=== PATIENT | male | born 1960 | race Caucasian/White ===

== ENCOUNTER → 2021-08-26 | Outpatient (CLI) | payer OTHER ==
[2021-08-26 12:55] LABS: HEMOGLOBIN A1C 6.1 % (3.8-5.6)
[2021-08-26 13:12] LABS: PROSTATE SPECIFIC ANTIGEN 1.62 ng/mL (0.00-4.00)
[2021-08-26 13:13] LABS: EOSINOPHILS % (AUTO) 6.9 % (1.0-6.0); HEMATOCRIT 44.3 % (41-53); HEMOGLOBIN 14.9 g/dL (13.5-17.5); LYMPHOCYTES # (AUTO) 1.7 K/uL (1.0-4.8); LYMPHOCYTES % (AUTO) 25.1 % (22.0-44.0); MEAN CORPUSCULAR HEMOGLOBIN 31.2 pg (26.0-34.0); MEAN CORPUSCULAR HGB CONC 33.5 G/dL (31.0-37.0); MEAN CORPUSCULAR VOLUME 93 fL (80-100); MONOCYTES # (AUTO) 0.6 K/uL (0.1-1.0); MONOCYTES % (AUTO) 8.9 % (2.0-9.0); NEUTROPHILS # (AUTO) 3.8 K/uL (1.8-7.7); NEUTROPHILS % (AUTO) 58.1 % (40.0-70.0); PLATELET COUNT (AUTO) 195 K/uL (150-450); RED BLOOD CELL COUNT(AUTO) 4.77 MIL/uL (4.50-5.90); RED CELL DISTRIBUTION WIDTH 13.2 % (11.5-14.5)
[2021-08-26 13:31] LABS: ALANINE AMINOTRANSFERASE 53 U/L (12-78); ALBUMIN 4.3 g/dL (3.4-5.0); ALKALINE PHOSPHATASE 64 U/L (46-116); ANION GAP 5 mmol/L (8-16); ASPARTATE AMINOTRANSFERASE 32 U/L (15-37); BILIRUBIN,TOTAL 0.9 mg/dL (0.1-1.0); CALCIUM, TOTAL 9.5 mg/dL (8.8-10.5); CARBON DIOXIDE 31 mmol/L (22-29); CHLORIDE 101 mmol/L (98-107); CHOL/HDL RATIO 4.5 (4.2-7.3); CHOLESTEROL 239 mg/dL (131-200); GLOMERULAR FILTR. RATE CALC > 60 mL/min (>60); GLUCOSE,RANDOM 116 mg/dL (70-110); HDL CHOLESTEROL 53 mg/dL (40-60); LDL CHOL (CALC.) 162 mg/dL (0-130); POTASSIUM 4.4 mmol/L (3.5-5.1); SODIUM SERUM 137 mmol/L (136-145); THYROID STIMULATING HORMONE 3.69 uIU/mL (0.36-3.74); TOTAL PROTEIN, SERUM 7.9 g/dL (6.4-8.2); TRIGLYCERIDES 122 mg/dL (15-150); UREA NITROGEN, BLOOD 12 mg/dL (7-18)
== END | disposition home or self-care (01) ==
LOC: MSR 11:39
PROVIDERS: ATTEND Internal Medicine
DX: Z13.228 Encounter for screening for other metabolic disorders (principal); I10 Essential (primary) hypertension; E78.5 Hyperlipidemia, unspecified; R79.9 Abnormal finding of blood chemistry, unspecified; R94.6 Abnormal results of thyroid function studies; R97.1 Elevated cancer antigen 125 [CA 125]; R97.20 Elevated prostate specific antigen [PSA]; I51.7 Cardiomegaly
CPT/HCPCS: 71046; 80053; 80061; 83036; 84153; 84443; 85025; 36415-L1; 36415-TC

== ENCOUNTER → 2021-08-26 | Outpatient (CLI) | payer BC, OTHER ==
[~2021-08-26] VITALS: Ht 175.3 cm; Wt 111.0 kg
[2021-08-26 10:23] VITALS: BP 137/73
== END | disposition home or self-care (01) ==
LOC: SRCNTR 09:35
PROVIDERS: ATTEND Internal Medicine
DX: I10 Essential (primary) hypertension (principal); J45.909 Unspecified asthma, uncomplicated; E78.5 Hyperlipidemia, unspecified; I35.0 Nonrheumatic aortic (valve) stenosis; M16.9 Osteoarthritis of hip, unspecified; Z95.2 Presence of prosthetic heart valve; Z96.649 Presence of unspecified artificial hip joint
CPT/HCPCS: G0463; Z7500

== ENCOUNTER 2022-01-04 08:15 | Emergency (ER) | payer OTHER ==
[~2022-01-04] VITALS: Ht 180.3 cm; Wt 106.8 kg
[2022-01-04] MEDS ORDERED: METOPROLOL SUCCINATE 50 MG ER TABLET PO ONE (08:45)
[2022-01-04 09:12] LABS: BASOPHILS % (AUTO) 0.6 % (0.0-2.0); HEMATOCRIT 41.8 % (41-53); LYMPHOCYTES # (AUTO) 1.6 K/uL (1.0-4.8); LYMPHOCYTES % (AUTO) 28.6 % (22.0-44.0); MEAN CORPUSCULAR HEMOGLOBIN 30.3 pg (26.0-34.0); MEAN CORPUSCULAR HGB CONC 33.5 G/dL (31.0-37.0); MEAN CORPUSCULAR VOLUME 90 fL (80-100); MONOCYTES # (AUTO) 0.5 K/uL (0.1-1.0); MONOCYTES % (AUTO) 9.2 % (2.0-9.0); NEUTROPHILS # (AUTO) 3.3 K/uL (1.8-7.7); NEUTROPHILS % (AUTO) 57.6 % (40.0-70.0); PLATELET COUNT (AUTO) 199 K/uL (150-450); RED BLOOD CELL COUNT(AUTO) 4.63 MIL/uL (4.50-5.90); RED CELL DISTRIBUTION WIDTH 13.7 % (11.5-14.5)
[2022-01-04 09:22] LABS: ANION GAP 7 mmol/L (8-16); CALCIUM, TOTAL 8.8 mg/dL (8.8-10.5); CARBON DIOXIDE 29 mmol/L (22-29); CHLORIDE 104 mmol/L (98-107); CREATININE 0.93 mg/dL (0.60-1.30); GLOMERULAR FILTR. RATE CALC > 60 mL/min (>60); GLUCOSE,RANDOM 120 mg/dL (70-110); SODIUM SERUM 140 mmol/L (136-145); UREA NITROGEN, BLOOD 17 mg/dL (7-18)
[2022-01-04 09:26] LABS: PROTHROMBIN TIME 10.9 SEC (9.4-11.6)
[2022-01-04 09:27] LABS: ALANINE AMINOTRANSFERASE 46 U/L (12-78); ALBUMIN 3.9 g/dL (3.4-5.0); ALKALINE PHOSPHATASE 57 U/L (46-116); ASPARTATE AMINOTRANSFERASE 25 U/L (15-37); BILIRUBIN,TOTAL 0.8 mg/dL (0.1-1.0); TOTAL PROTEIN, SERUM 7.2 g/dL (6.4-8.2)
[2022-01-04 09:29] LABS: B-TYPE NATRIURETIC PEPTIDE 20 pg/mL (0-100)
[2022-01-04 12:25] VITALS: BP 120/67
[2022-01-04] MEDS ORDERED: METO-558 PO (13:02)
== END 2022-01-04 13:16 | disposition home or self-care (01) ==
LOC: EMS 08:15
DX: I48.92 Unspecified atrial flutter (principal); I10 Essential (primary) hypertension; I25.10 Atherosclerotic heart disease of native coronary artery without angina pectoris; Z95.2 Presence of prosthetic heart valve; Z98.890 Other specified postprocedural states; Z88.0 Allergy status to penicillin
CPT/HCPCS: 71045; 80053; 83880; 84484; 85025; 85610; 85730; 93005; 93306; 99285; 36415-L1; 36415-TC

== ENCOUNTER → 2022-02-04 | Outpatient (CLI) | payer OTHER ==
[~2022-02-04] MED LIST: METO-558 PO
[2022-02-04 10:44] VITALS: BP 12/90
[2022-02-04 10:55] VITALS: BP 123/90
== END | disposition home or self-care (01) ==
LOC: SRCNTR 10:19
PROVIDERS: ATTEND Internal Medicine
DX: I48.92 Unspecified atrial flutter (principal); I10 Essential (primary) hypertension; Z95.3 Presence of xenogenic heart valve
CPT/HCPCS: 93005; G0463

== ENCOUNTER 2022-03-30 12:40 | Emergency (ER) | payer OTHER ==
[~2022-03-30] VITALS: Ht 185.4 cm; Wt 106.8 kg
[2022-03-30 13:50] LABS: COVID AG,FIA SOURCE NASOPHARYNGEAL
[2022-03-30 14:11] LABS: INFLUENZA TYPE A NEGATIVE FOR TYPE A (NEGATIVE); INFLUENZA TYPE B NEGATIVE FOR TYPE B (NEGATIVE)
[2022-03-30] MEDS ORDERED: BEBTELOVIMAB (EUA) 175 MG/2 ML VIAL IVP ONE (15:45)
[2022-03-30] MEDS ORDERED: SODIUM CHLORIDE 0.9% 1,000 ML IV ONE (15:45)
[2022-03-30 17:10] VITALS: BP 110/67
== END 2022-03-30 17:22 | disposition home or self-care (01) ==
LOC: EMS 12:40
DX: U07.1 COVID-19 (principal); I10 Essential (primary) hypertension; J45.909 Unspecified asthma, uncomplicated; Z88.0 Allergy status to penicillin; Z79.899 Other long term (current) drug therapy
CPT/HCPCS: 99283; 96360; 87426; 87804; M0222; Q0222

== ENCOUNTER → 2022-06-21 | Outpatient (CLI) | payer OTHER ==
[~2022-06-21] MED LIST changes: +APIX5TAB PO; +ASPI81 PO; +FLUT1BLS9 IH; +MONT-35 PO
[2022-06-21 10:50] VITALS: BP 132/92
== END | disposition home or self-care (01) ==
LOC: SRCNTR 10:25
PROVIDERS: ATTEND Internal Medicine
DX: Z09 Encounter for follow-up examination after completed treatment for conditions other than malignant neoplasm (principal); I48.92 Unspecified atrial flutter; J45.909 Unspecified asthma, uncomplicated; I10 Essential (primary) hypertension; E78.5 Hyperlipidemia, unspecified; I35.0 Nonrheumatic aortic (valve) stenosis; M16.10 Unilateral primary osteoarthritis, unspecified hip; Z95.4 Presence of other heart-valve replacement
CPT/HCPCS: G0463; Z7500

== ENCOUNTER → 2022-06-21 | Outpatient (CLI) | payer OTHER ==
[2022-06-21 12:23] LABS: BASOPHILS % (AUTO) 1.3 % (0.0-2.0); EOSINOPHILS % (AUTO) 1.9 % (1.0-6.0); HEMATOCRIT 41.1 % (41-53); HEMOGLOBIN 13.7 g/dL (13.5-17.5); LYMPHOCYTES # (AUTO) 1.3 K/uL (1.0-4.8); LYMPHOCYTES % (AUTO) 22.7 % (22.0-44.0); MEAN CORPUSCULAR HEMOGLOBIN 31.4 pg (26.0-34.0); MEAN CORPUSCULAR HGB CONC 33.3 G/dL (31.0-37.0); MEAN CORPUSCULAR VOLUME 94 fL (80-100); MONOCYTES # (AUTO) 0.5 K/uL (0.1-1.0); MONOCYTES % (AUTO) 8.7 % (2.0-9.0); NEUTROPHILS # (AUTO) 3.8 K/uL (1.8-7.7); NEUTROPHILS % (AUTO) 65.4 % (40.0-70.0); PLATELET COUNT (AUTO) 193 K/uL (150-450); RED BLOOD CELL COUNT(AUTO) 4.36 MIL/uL (4.50-5.90); RED CELL DISTRIBUTION WIDTH 13.6 % (11.5-14.5)
[2022-06-21 12:46] LABS: ALANINE AMINOTRANSFERASE 46 U/L (12-78); ALBUMIN 3.8 g/dL (3.4-5.0); ALKALINE PHOSPHATASE 57 U/L (46-116); ANION GAP 6 mmol/L (8-16); ASPARTATE AMINOTRANSFERASE 27 U/L (15-37); BILIRUBIN,TOTAL 0.6 mg/dL (0.1-1.0); CALCIUM, TOTAL 8.7 mg/dL (8.8-10.5); CARBON DIOXIDE 31 mmol/L (22-29); CHLORIDE 101 mmol/L (98-107); CHOL/HDL RATIO 4.3 (4.2-7.3); CHOLESTEROL 197 mg/dL (131-200); GLUCOSE,RANDOM 124 mg/dL (70-110); HDL CHOLESTEROL 46 mg/dL (40-60); LDL CHOL (CALC.) 113 mg/dL (0-130); POTASSIUM 4.3 mmol/L (3.5-5.1); SODIUM SERUM 138 mmol/L (136-145); THYROID STIMULATING HORMONE 2.99 uIU/mL (0.36-3.74); TOTAL PROTEIN, SERUM 7.1 g/dL (6.4-8.2); TRIGLYCERIDES 190 mg/dL (15-150); UREA NITROGEN, BLOOD 16 mg/dL (7-18)
[2022-06-21 12:47] LABS: GLOMERULAR FILTR. RATE CALC > 60 mL/min (>60)
[2022-06-21 12:48] LABS: HEMOGLOBIN A1C 6.2 % (3.8-5.6)
[2022-06-21 15:47] LABS: VITAMIN B12 LEVEL 1086 pg/mL (211-911); VITAMIN D,TOTAL (25-0H) 30 ng/mL (30-100)
== END | disposition home or self-care (01) ==
LOC: LABMN 11:45
PROVIDERS: ATTEND Internal Medicine
DX: M47.812 Spondylosis without myelopathy or radiculopathy, cervical region (principal); M48.02 Spinal stenosis, cervical region; I10 Essential (primary) hypertension; M54.2 Cervicalgia
CPT/HCPCS: 72040; 80053; 80061; 82306; 82607; 83036; 84443; 85025

== ENCOUNTER → 2022-07-06 | Outpatient (CLI) | payer OTHER ==
[~2022-07-06] VITALS: Ht 175.3 cm; Wt 115.5 kg
[2022-07-06 11:07] VITALS: BP 120/73
== END | disposition home or self-care (01) ==
LOC: SRCNTR 10:58
PROVIDERS: ATTEND Internal Medicine
DX: I10 Essential (primary) hypertension (principal); I48.92 Unspecified atrial flutter
CPT/HCPCS: G0463

== ENCOUNTER 2022-08-18 06:47 | Day surgery (SDC) | payer OTHER ==
[~2022-08-18] VITALS: Ht 180.3 cm; Wt 115.5 kg
[2022-08-18] MEDS ORDERED: PROPOFOL 1% 20 ML VIAL IVP ONE (06:48)
[2022-08-18] MEDS ORDERED: SODIUM CHLORIDE 0.9% 1,000 ML IV ONE ×2 (07:00)
[2022-08-18] MEDS ORDERED: ALBUTEROL SULFATE 2.5 MG/0.5 ML NEB SOLUTION NEB ONE ×2 (07:00→07:07)
[2022-08-18 07:20] LABS: COVID AG,FIA SOURCE NASAL SWAB
[2022-08-18 07:22] LABS: BASOPHILS % (AUTO) 1.2 % (0.0-2.0); EOSINOPHILS % (AUTO) 4.4 % (1.0-6.0); HEMATOCRIT 41.5 % (41-53); HEMOGLOBIN 13.8 g/dL (13.5-17.5); LYMPHOCYTES # (AUTO) 1.9 K/uL (1.0-4.8); MEAN CORPUSCULAR HEMOGLOBIN 30.9 pg (26.0-34.0); MEAN CORPUSCULAR HGB CONC 33.2 G/dL (31.0-37.0); MEAN CORPUSCULAR VOLUME 93 fL (80-100); MONOCYTES # (AUTO) 0.5 K/uL (0.1-1.0); MONOCYTES % (AUTO) 10.3 % (2.0-9.0); NEUTROPHILS # (AUTO) 2.6 K/uL (1.8-7.7); NEUTROPHILS % (AUTO) 49.1 % (40.0-70.0); PLATELET COUNT (AUTO) 161 K/uL (150-450); RED BLOOD CELL COUNT(AUTO) 4.45 MIL/uL (4.50-5.90); RED CELL DISTRIBUTION WIDTH 13.2 % (11.5-14.5)
[2022-08-18 07:31] LABS: ANION GAP 7 mmol/L (8-16); CALCIUM, TOTAL 9.1 mg/dL (8.8-10.5); CARBON DIOXIDE 29 mmol/L (22-29); CHLORIDE 101 mmol/L (98-107); CREATININE 1.07 mg/dL (0.60-1.30); GLUCOSE,RANDOM 118 mg/dL (70-110); POTASSIUM 4.2 mmol/L (3.5-5.1); SODIUM SERUM 137 mmol/L (136-145); UREA NITROGEN, BLOOD 15 mg/dL (7-18)
[2022-08-18 07:36] LABS: ALANINE AMINOTRANSFERASE 40 U/L (12-78); ALBUMIN 3.9 g/dL (3.4-5.0); ALKALINE PHOSPHATASE 54 U/L (46-116); ASPARTATE AMINOTRANSFERASE 21 U/L (15-37); BILIRUBIN,TOTAL 0.6 mg/dL (0.1-1.0); GLOMERULAR FILTR. RATE CALC > 60 mL/min (>60); TOTAL PROTEIN, SERUM 7.3 g/dL (6.4-8.2)
[2022-08-18 07:50] LABS: PROTHROMBIN TIME 11.1 SEC (9.4-11.6)
[2022-08-18] MEDS ORDERED: FLUT1DIS6 IH (08:21)
[2022-08-18] MEDS ORDERED: LIDOCAINE 2% VISCOUS 15 ML SOLUTION UDCUP ONE ×2 (08:27→09:17)
[2022-08-18] MEDS ORDERED: FentaNYL CITRATE PF 100 MCG/2 ML VIAL ONE (08:52)
[2022-08-18] MEDS ORDERED: MIDAZOLAM HCL 2 MG/2 ML VIAL ONE ×3 (08:53→09:10)
[2022-08-18] MEDS ORDERED: LIDOCAINE 2% VISCOUS 15 ML SOLUTION UDCUP PO ONE (09:00)
[2022-08-18] MEDS ORDERED: FentaNYL CITRATE PF 100 MCG/2 ML VIAL IVP ONE (09:15)
[2022-08-18] MEDS ORDERED: MIDAZOLAM HCL 2 MG/2 ML VIAL IVP ONE ×3 (09:15)
[2022-08-18] MEDS ORDERED: PERFLUTREN PROTEIN-A MICROSPHERES 0.22 MG/ML 3 ML VIAL IVP ONE ×2 (09:15→09:30)
[2022-08-18] MEDS ORDERED: 0.9% SODIUM CHLORIDE 10 ML SYRINGE IVP ONE ×2 (09:22)
[2022-08-18 09:26] VITALS: BP 133/95
[2022-08-18] MEDS ORDERED: LIDOCAINE/PF 2% 5 ML VIAL ONE (09:27)
[2022-08-18 09:47] VITALS: BP 117/89
== END 2022-08-18 11:10 | disposition home or self-care (01) ==
LOC: CATHLAB 06:47
PROVIDERS: ATTEND Internal Medicine
DX: I48.92 Unspecified atrial flutter (principal); I35.1 Nonrheumatic aortic (valve) insufficiency; I10 Essential (primary) hypertension; J45.909 Unspecified asthma, uncomplicated; E66.3 Overweight; Z20.822 Contact with and (suspected) exposure to COVID-19; Z79.01 Long term (current) use of anticoagulants; Z79.82 Long term (current) use of aspirin; Z79.84 Long term (current) use of oral hypoglycemic drugs; Z79.899 Other long term (current) drug therapy; Z88.0 Allergy status to penicillin; Z95.2 Presence of prosthetic heart valve; Z96.641 Presence of right artificial hip joint; Z98.890 Other specified postprocedural states
CPT/HCPCS: 92960; 93312; 87426; 80053; 85025; 85610; 85730; 36415; 93005; J2704; J3010; J3490; J2250; Q9967; C9803

== ENCOUNTER → 2022-08-30 | Outpatient (CLI) | payer OTHER ==
[~2022-08-30] VITALS: Ht 175.3 cm; Wt 116.0 kg
[~2022-08-30] MED LIST changes: -ASPI81 PO; +FLUT1DIS6 IH
[2022-08-30 11:28] VITALS: BP 126/84
== END | disposition home or self-care (01) ==
LOC: SRCNTR 10:59
PROVIDERS: ATTEND Internal Medicine
DX: I10 Essential (primary) hypertension (principal); J45.909 Unspecified asthma, uncomplicated; G47.33 Obstructive sleep apnea (adult) (pediatric); I35.0 Nonrheumatic aortic (valve) stenosis
CPT/HCPCS: G0463

== ENCOUNTER → 2023-08-03 | Outpatient (CLI) | payer OTHER ==
[~2023-08-03] MED LIST changes: +ALBU18HF12 IH; +FLUT1BLS19 IH; -FLUT1BLS9 IH; -MONT-35 PO; +OMEP20 PO
== END | disposition home or self-care (01) ==
LOC: RADPV 09:43
PROVIDERS: ATTEND Internal Medicine
DX: I35.1 Nonrheumatic aortic (valve) insufficiency (principal); I48.92 Unspecified atrial flutter; Z95.2 Presence of prosthetic heart valve
CPT/HCPCS: 93306

== ENCOUNTER 2023-08-04 05:29 | Day surgery (SDC) | payer OTHER ==
[2023-08-04] VITALS (9 sets, daily range): BP systolic 113–136; BP diastolic 65–87; PULSE 72–80
[~2023-08-04] VITALS: Ht 182.9 cm; Wt 111.4 kg
[~2023-08-04 05:29] MED LIST changes: -ALBU18HF12 IH; -OMEP20 PO; +SODIUM CHLORIDE 0.9% 1,000 ML ONE
[2023-08-04 06:14] LABS: BASOPHILS % (AUTO) 1.4 % (0.0-2.0); EOSINOPHILS % (AUTO) 5.4 % (1.0-6.0); HEMATOCRIT 39.7 % (41-53); HEMOGLOBIN 13.4 g/dL (13.5-17.5); LYMPHOCYTES # (AUTO) 1.7 K/uL (1.0-4.8); LYMPHOCYTES % (AUTO) 27.6 % (22.0-44.0); MEAN CORPUSCULAR HEMOGLOBIN 31.6 pg (26.0-34.0); MEAN CORPUSCULAR HGB CONC 33.7 G/dL (31.0-37.0); MEAN CORPUSCULAR VOLUME 94 fL (80-100); MONOCYTES # (AUTO) 0.6 K/uL (0.1-1.0); NEUTROPHILS # (AUTO) 3.4 K/uL (1.8-7.7); NEUTROPHILS % (AUTO) 55.6 % (40.0-70.0); PLATELET COUNT (AUTO) 177 K/uL (150-450); RED BLOOD CELL COUNT(AUTO) 4.23 MIL/uL (4.50-5.90); RED CELL DISTRIBUTION WIDTH 13.9 % (11.5-14.5)
[2023-08-04 06:24] LABS: ANION GAP 8 mmol/L (8-16); CALCIUM, TOTAL 8.8 mg/dL (8.8-10.5); CARBON DIOXIDE 30 mmol/L (22-29); CHLORIDE 100 mmol/L (98-107); CREATININE 1.03 mg/dL (0.60-1.30); GLOMERULAR FILTR. RATE CALC > 60 mL/min (>60); GLUCOSE,RANDOM 113 mg/dL (70-110); POTASSIUM 3.9 mmol/L (3.5-5.1); SODIUM SERUM 138 mmol/L (136-145); UREA NITROGEN, BLOOD 13 mg/dL (7-18)
[2023-08-04 06:27] LABS: INR 1.1 (0.9-1.1); PROTHROMBIN TIME 11.1 SEC (9.4-11.6)
[2023-08-04] MEDS ORDERED: ALBUTEROL SULFATE 2.5 MG/0.5 ML NEB SOLUTION NEB ONE (06:27)
[2023-08-04 06:30] LABS: ALANINE AMINOTRANSFERASE 61 U/L (12-78); ALBUMIN 3.8 g/dL (3.4-5.0); ALKALINE PHOSPHATASE 55 U/L (46-116); ASPARTATE AMINOTRANSFERASE 31 U/L (15-37); BILIRUBIN,TOTAL 0.7 mg/dL (0.1-1.0); TOTAL PROTEIN, SERUM 7.3 g/dL (6.4-8.2)
[2023-08-04] MEDS ORDERED: OMEP20 PO (06:36)
[2023-08-04] MEDS ORDERED: ALBU18HF12 IH (06:36)
[2023-08-04] MEDS ORDERED: SODIUM CHLORIDE 0.9% 1,000 ML IV ONE (06:45)
[2023-08-04] MEDS ORDERED: HEPARIN SODIUM 1000 UNITS/NS 1,000 ML ONE (06:53)
[2023-08-04] MEDS ORDERED: SODIUM BICARBONATE 50 MEQ/50 ML VIAL ONE (06:53)
[2023-08-04] MEDS ORDERED: VERAPAMIL HCL 2.5 MG/ML 2 ML VIAL ONE (06:53)
[2023-08-04] MEDS ORDERED: NITROGLYCERIN 50 MG/D5% WATER 250 ML ONE (06:53)
[2023-08-04] MEDS ORDERED: LIDOCAINE/PF 1% 30 ML VIAL ONE (06:53)
[2023-08-04] MEDS ORDERED: IOHEXOL 300 MG/ML 100 ML VIAL ONE (06:53)
[2023-08-04] MEDS ORDERED: HEPARIN SODIUM,PORCINE 1,000 UNITS/ML 10 ML VIAL IARTER ONE (08:00)
[2023-08-04] MEDS ORDERED: IOHEXOL 300 MG/ML 100 ML VIAL IARTER ONE (08:00)
[2023-08-04] MEDS ORDERED: FentaNYL CITRATE PF 100 MCG/2 ML VIAL IVP ONE (08:00)
[2023-08-04] MEDS ORDERED: MIDAZOLAM HCL 2 MG/2 ML VIAL IVP ONE (08:00)
[2023-08-04] MEDS ORDERED: LIDOCAINE 1% 30 ML/SOD BICARB 8.4% 4 ML SQ ONE (08:00)
[2023-08-04] MEDS ORDERED: VERAPAMIL HCL 2.5 MG/ML 2 ML VIAL IARTER ONE (08:00)
[2023-08-04] MEDS ORDERED: NITROGLYCERIN/D5W 50 MG/250 ML IV BOTTLE IARTER ONE (08:00)
[2023-08-04] MEDS ORDERED: HEPARIN SODIUM 2,000 UNITS in HEPARIN SODIUM 1000 UNITS/NS 1,000 ML IARTER ONE (08:00)
[2023-08-04] MEDS ORDERED: APIX5TAB PO ×2 (08:32→10:23)
== END 2023-08-04 11:50 | disposition home or self-care (01) ==
LOC: CATHLAB 05:29
PROVIDERS: ATTEND Internal Medicine
DX: I35.0 Nonrheumatic aortic (valve) stenosis (principal); Z95.2 Presence of prosthetic heart valve; J45.909 Unspecified asthma, uncomplicated; I10 Essential (primary) hypertension; Z79.899 Other long term (current) drug therapy; Z88.0 Allergy status to penicillin; Z96.641 Presence of right artificial hip joint; Z79.01 Long term (current) use of anticoagulants
CPT/HCPCS: 93005; 80053; 85025; 85610; 85730; 36415; 99152; 99153; 93454; J3010; J1644; J3490 ×4; J2250; J7030; Q9967